=== PATIENT | female | born 1965 | race Caucasian/White ===

== ENCOUNTER 2019-12-25 00:31 | Day surgery (SDC) | payer OTHER, SELFPAY ==
[2019-12-20 10:35] VITALS: BMI 26.4
[2019-12-25 06:54] VITALS: BP 124/72; PULSE 76; RESP 20; TEMP 36.8; O2SAT 98
[2019-12-25] MEDS: LACTATED RINGERS 1,000 ML 150 ML IV CONT (07:01)
--- NOTE | 2019-12-25 07:06 | WPDANESEPPF ---
Anes - Initial Pre Proc Eval Procedure: Operation Date: 12/25/19 08:00 Proposed Procedures p Colonoscopy - Britton Aguilar MD Date/Time: 12/25/19 07:06 Surgeon: Britton Aguilar MD Pre Op Diagnosis: Rectal Bleeding Patient Data Age: 54 Gender: F Height: 5 ft 4 in Weight: 69.9 kg Last Vital Signs Temp 36.8 C 12/25/19 06:54 Pulse 76 12/25/19 06:54 Resp 20 12/25/19 06:54 BP 124/72 12/25/19 06:54 Pulse Ox 98 12/25/19 06:54 Allergies Allergy/AdvReac Type Severity Reaction Status Date / Time No Known Allergies Allergy Mild Verified 12/25/19 06:53 Home Medications Medication Instructions Recorded Confirmed Type ascorbic acid-collagen [Collagen 1 cap PO DAILY 12/20/19 12/20/19 History Plus Vitamin C] black cohosh 200 mg PO DAILY 12/20/19 12/20/19 History cyanocobalamin (vitamin B-12) 1,000 mcg PO DAILY 12/20/19 12/20/19 History [Vitamin B-12] salud sgku-hnzwexoi-aicrqy-cranb 1 cap PO DAILY 12/20/19 12/20/19 History [evening primrose oil-cranberry] lactobacillus combination no.8 3,000 mmu cells PO DAILY 12/20/19 12/20/19 History [Adult Probiotic] pfkbyatecuos-ecc-ryho-FA-vit K 1 tablet PO DAILY 12/20/19 12/20/19 History [Adults Multivitamin] psyllium seed (with dextrose) 3.4 g PO DAILY 12/20/19 12/20/19 History [fiber] vilazodone [Viibryd] 40 mg PO DAILY 12/20/19 12/20/19 History Patient hx anesthesia problems: none Family hx anesthesia problems: none PMFSH Past Medical History Medical History Depression Smoker Surgical History Surgical History (Updated 12/25/19 @ 07:07 by Pablo Urbano MD) H/O laparoscopy Family History Family History (Updated 06/28/14 @ 07:13 by DOCTOR UNKNOWN) Mother Hypertension Social History Social History Alcohol intake: current Anes - Eval Final PreProcedure Day of Procedure 12/25/19 07:06 Patient weight: overweight Heart: regular rate and rhythm Lungs: clear to auscultation Airway: Mallampati scale class II Neurological: alert and oriented Last oral intake: >/= 8 hours ASA classification: II Emergent: no Anesthetic plan: proceed Anesthesia type and monitoring: general GIVS and standard monitoring Informed Consent: The patient's anesthetic plan and its attendant risks and benefits were discussed with the patient/family/POA. Questions were solicited and answers provided to the satisfaction of the patient/family/POA.
--- NOTE | 2019-12-25 07:50 | P.CONGI_ITS ---
Assessment and Plan Additional Plan This is a 54-year-old white female patient seen in evaluation at the request of Dr. Cuauhtemoc Mcgowan. Patient complains of rectal bleeding for 6 months. She also notices mucus in her stools. Her bowel habits are regular. She has begun taking Pepto-Bismol which seems to help to some degree. She denies abdominal pain. Her last colonoscopy 2016 confirmed internal hemorrhoids. Patient's family history is noncontributory. She never previously had blood in her stools. Her weight has remained stable. Current medications include Viibryd, probiotics, vitamins and supplements. She has no known drug allergies. Physical exam reveals her to be alert. Oriented x3. Vital signs stable. HEENT exam unremarkable. Lungs are clear to auscultation and percussion. Heart is without murmur or extra sounds. Abdominal exam bowel sounds are present soft nontender with no organomegaly. Digital external rectal exam reveals a polypoid lesion on the right anal canal. Impression 1. Rectal bleeding. 2. Rectal lesion possible rectal polyp. Plan is for colonoscopy to evaluate more thoroughly. Fiber supplement such as FiberCon 2 tabs p.o. b.i.d. advised. Further recommendations will be given after endoscopy. GI Consult Note Consult date/time: 12/25/19 07:50 HPI: Beltran Turner is a 54 year old female [facility] Past Medical History Medical History Depression Smoker Surgical History Surgical History (Updated 12/25/19 @ 07:07 by Pablo Urbano MD) H/O laparoscopy Family History Family History (Updated 06/28/14 @ 07:13 by DOCTOR UNKNOWN) Mother Hypertension Social History Social History Alcohol intake: current Meds Home Medications and Allergies Home Medications Medication Instructions Recorded Confirmed Type ascorbic acid-collagen [Collagen 1 cap PO DAILY 12/20/19 12/20/19 History Plus Vitamin C] black cohosh 200 mg PO DAILY 12/20/19 12/20/19 History cyanocobalamin (vitamin B-12) 1,000 mcg PO DAILY 12/20/19 12/20/19 History [Vitamin B-12] salud ytww-qsxddhzk-sheeqe-cranb 1 cap PO DAILY 12/20/19 12/20/19 History [evening primrose oil-cranberry] lactobacillus combination no.8 3,000 mmu cells PO DAILY 12/20/19 12/20/19 History [Adult Probiotic] mapdjbemkdbf-syc-ejda-FA-vit K 1 tablet PO DAILY 12/20/19 12/20/19 History [Adults Multivitamin] psyllium seed (with dextrose) 3.4 g PO DAILY 12/20/19 12/20/19 History [fiber] vilazodone [Viibryd] 40 mg PO DAILY 12/20/19 12/20/19 History Allergies Allergy/AdvReac Type Severity Reaction Status Date / Time No Known Allergies Allergy Mild Verified 12/25/19 06:53 Vital Signs Vital Signs - 24 hr 12/25/19 06:54 Temperature 36.8 C Pulse Rate 76 Respiratory Rate 20 Blood Pressure 124/72 Pulse Oximetry 98
[2019-12-25 08:15] VITALS: BP 94/61; PULSE 63; RESP 26; O2SAT 100
[2019-12-25 08:25] VITALS: BP 111/73; PULSE 67; RESP 16; O2SAT 98
[2019-12-25 08:35] VITALS: BP 112/77; PULSE 61; RESP 19; O2SAT 100
== END 2019-12-25 08:46 | disposition home or self-care (01) ==
PROVIDERS: PCP Family Medicine Adolescent Medicine; Visit Provider Internal Medicine Gastroenterology
PROC: 0DJD8ZZ Inspection of Lower Intestinal Tract, Via Natural or Artificial Opening Endoscopic (ICD-10-PCS; CPT 45378; principal; 2019-12-25 08:00)
DX: Z12.11 Encounter for screening for malignant neoplasm of colon (principal); K63.5 Polyp of colon; K64.8 Other hemorrhoids; K62.5 Hemorrhage of anus and rectum; F32.9 Major depressive disorder, single episode, unspecified
CPT/HCPCS: 45385; 88305; J2704; J7120

== ENCOUNTER 2021-01-17 10:53 | Outpatient (CLI) | payer OTHER, SELFPAY ==
[2021-01-17 11:41] LABS: Hematocrit 38.5 % (37.0-47.0); Hemoglobin 13.1 g/dL (12.0-15.0); Mean Corpuscular Hemoglobin 32.3 pg (26-34); Mean Corpuscular Volume 95.1 fl (80-100); Mean Platelet Volume 9.3 fl (7.4-10.4); Platelet Count Result 306 k/mm3 (150-375); Red Blood Count 4.05 M/mm3 (4.2-5.4); Red Cell Distribution Width 12.5 % (11.5-14.5); White Blood Count 9.1 K/mm3 (4.5-10.0)
== END 2021-01-17 10:54 | disposition home or self-care (01) ==
PROVIDERS: PCP Family Medicine Adolescent Medicine; Visit Provider Nurse Practitioner Family
DX: R19.7 Diarrhea, unspecified (principal)
CPT/HCPCS: 36415; 85027

== ENCOUNTER 2021-01-18 10:58 | Outpatient (CLI) | payer OTHER, SELFPAY | END 2021-01-18 10:59 | disposition home or self-care (01) | LOC: ANHLAB 11:02 | PROVIDERS: PCP Family Medicine Adolescent Medicine; Visit Provider Nurse Practitioner Family | DX: R19.7 Diarrhea, unspecified (principal) | CPT/HCPCS: 87045; 87046; 87427 ==

== ENCOUNTER → 2022-09-21 14:51 | Outpatient (CLI) | payer OTHER, SELFPAY ==
--- NOTE | ~2022-09-21 | MM_ITS ---
EXAMINATION: MM scrn harjinder implant BI w angelic HISTORY: Screening mammogram TECHNIQUE: Craniocaudal and mediolateral oblique 3-D tomosynthesis images with implant displacement a nd synthetic 2-D images were generated. Craniocaudal and mediolateral oblique views of the breasts wi thout implant displacement were obtained using full field digital mammography. CAD analysis was submi tted and interpreted. COMPARISON: 04/20/2013, 09/11/2010 bilateral implant screening mammogram examinations BREAST PARENCHYMAL COMPOSITION: The breasts are heterogeneously dense, which may obscure small masses . FINDINGS: Status post bilateral augmentation mammoplasty. Right breast: There is no evidence of suspicious mass, calcification, or architectural distortion to suggest malignancy in either breast. There has been no suspicious interval change. Left breast: There is asymmetric density in the posterior central left breast. Diagnostic left mammog roxanna and left breast ultrasound examination are recommended. IMPRESSION: 1. Left mammographic asymmetry 2. Diagnostic left mammogram and left breast ultrasound examination are recommended BI-RADS Category 0: Incomplete: Needs additional imaging evaluation. Reviewed, dictated and finalized at location A. LE MOLDER IMPRESSION: 1. Left mammographic asymmetry 2. Diagnostic left mammogram and left breast ultrasound examination are recomme nded BI-RADS Category 0: Incomplete: Needs additional imaging evaluation.
== END ==
PROVIDERS: PCP Obstetrics & Gynecology; Visit Provider Obstetrics & Gynecology
DX: Z12.31 Encounter for screening mammogram for malignant neoplasm of breast (principal); R92.8 Other abnormal and inconclusive findings on diagnostic imaging of breast
CPT/HCPCS: 77063; 77067

== ENCOUNTER → 2022-10-13 08:27 | Outpatient (CLI) | payer OTHER, SELFPAY ==
--- NOTE | ~2022-10-13 | MMUS_ITS ---
EXAMINATION: MM diag harjinder implant LT w angelic, US breast LT complete HISTORY: Follow-up left breast asymmetries TECHNIQUE: Additional 3-D tomosynthesis images of the left breast were performed and synthetic 2-D im ages were generated. CAD analysis was submitted and interpreted. High resolution complete left breast ultrasound was performed. COMPARISON: Comparison to multiple prior studies sequentially, with oldest reviewed study dated 09/0111/02/1912/21/2009. BREAST PARENCHYMAL COMPOSITION: Breast composed of scattered areas of fibroglandular density. FINDINGS: MAMMOGRAPHIC FINDINGS: There are nodular asymmetries in the lower central aspect of the left breast adjacent to the left beck ast silicone implant. There were previously nodular densities adjacent to the implant on the 3 examination, although there is a different morphology. ULTRASOUND: Complete bilateral US of all 4 quadrants of the left breast and retroareolar region was reviewed. The re are areas of silicone shadowing adjacent to the implant at 3-4:00, 4-5:00, 7:00, likely correspond ing to the findings on mammography. No other discrete solid or cystic mass is identified. IMPRESSION: 1. 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 2. Recommend correlation with MRI of the breasts without and with contrast for further assessment of these masses. BI-RADS Category 0: Incomplete: Needs additional imaging evaluation. Reviewed, dictated and finalized at location B. ERCIAL LOAN ASSISTANT IMPRESSION: 1. 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 2. Recommend correlation with MRI of the breasts without and with contrast for further assessment of these masses. BI-RADS Category 0: Incomplete: Needs additional imaging evaluation.
== END ==
PROVIDERS: PCP Family Medicine Adolescent Medicine; Visit Provider Obstetrics & Gynecology
DX: R92.8 Other abnormal and inconclusive findings on diagnostic imaging of breast (principal); N63.25 Unspecified lump in the left breast, overlapping quadrants
CPT/HCPCS: 76641; 77061; 77065; G0279

== ENCOUNTER 2022-11-06 07:58 | Outpatient (CLI) | payer OTHER, SELFPAY ==
--- NOTE | ~2022-11-06 | MR_ITS ---
EXAMINATION: MR breast BI wo/w con INDICATION: Indeterminate left breast masses TECHNIQUE: Axial VIBRANT pre and dynamic post contrast, Sagittal VIBRANT post contrast, Axial T2 STIR ASSET, Axial T2 FSE ASSET, axial VIBRANT, Sagittal T2 FSE, Sagittal T2 STIR silicone SAT, Sagittal T 2 STIR silicone bright COMPARISON: Prior mammograms and ultrasounds dated 10/13/2022, 09/21/2022, 03/24/2013, 09/11/2010 CONTRAST: Multihance, 15 cc BREAST COMPOSITION: Scattered fibroglandular tissue FINDINGS: RIGHT BREAST: There is mild background parenchymal enhancement. Motion artifact renders post contrast sequences essentially uninterpretable. No abnormal enhancement is present after contrast administrat ion. No pathologically enlarged axillary or internal mammary lymph nodes are identified. LEFT BREAST: There is mild background parenchymal enhancement. There is residual silicone in the [place] st from prior breast implant rupture accounting for the mammographic finding in question. Motion halima fact renders post contrast sequences essentially uninterpretable. No abnormal enhancement is present after contrast administration. No pathologically enlarged axillary or internal mammary lymph nodes ar e identified. IMPRESSION: 1. Residual silicone in the left breast from prior implant rupture corresponding to the mammographic finding in question. Motion artifact precludes evaluation for breast cancer however no additional renan picious finding is identified on mammogram or ultrasound. Routine annual screening mammography is rec ommended. BI-RADS Category 2: Benign finding(s). Reviewed, dictated and finalized at location A. DIRECTOR IMPRESSION: 1. Residual silicone in the left breast from prior implant rupture correspondin g to the mammographic finding in question. Motion artifact precludes evaluation for breast cancer however no additional suspicious finding is identified on ma mmogram or ultrasound. Routine annual screening mammography is recommended. BI-RADS Category 2: Benign finding(s).
== END 2022-11-06 07:59 | disposition home or self-care (01) ==
PROVIDERS: PCP Family Medicine Adolescent Medicine; Visit Provider Obstetrics & Gynecology
DX: N63.25 Unspecified lump in the left breast, overlapping quadrants (principal)
CPT/HCPCS: 77049; A9577; C8908

== ENCOUNTER 2024-01-31 07:27 | Emergency (ER) | payer OTHER, SELFPAY ==
--- NOTE | ~2024-01-31 | XR_ITS ---
EXAMINATION: XR lumbar spine min 4V DATE: 01/31/2024 10:26 INDICATION: Low back pain. TECHNIQUE: 5 views of lumbar spine were obtained. COMPARISON: None. FINDINGS: There is 4 degrees dextrocurvature of lumbar spine. There is 3 mm anterolisthesis of L5 on S1. There are chronic bilateral L5 pars defects. There is mild chronic anterior wedging of T11 and T1 2 vertebral bodies. There is mild chronic height loss of L5 vertebral body posteriorly. There is mild ly decreased disc height at L2-L3 and severely decreased disc height at L3-L4 and L5-S1. There is mul tilevel mild facet joint osteoarthritis. IMPRESSION: 1. Chronic bilateral L5 pars defects with grade 1 anterolisthesis of L5 on S1. 2. Severe lumbar spondylosis. Reviewed, dictated and finalized at location A.
[2024-01-31 07:31] VITALS: BP 137/78; PULSE 98; RESP 17; TEMP 36.4; O2SAT 98
[2024-01-31] MEDS: methylPREDNISolone SOD SUCC 125 MG VIAL IM (09:35)
[2024-01-31] MEDS: ACETAMINOPHEN 500 MG TABLET 1000 MG PO (09:35)
[2024-01-31] MEDS: methocarbamoL 500 MG TABLET 1000 MG PO (09:35)
[2024-01-31] MEDS: KETOROLAC (*BKC) 60 MG/2 ML VIAL IM (09:36)
--- NOTE | 2024-01-31 09:39 | ED.BACK ---
HPI - Back Pain/Injury General Chief Complaint: Back Pain/Injury Stated Complaint: back pain Time Seen by Provider: 01/31/24 09:00 Source: patient Mode of arrival: ambulatory Limitations: no limitations History of Present Illness HPI Narrative: Patient is a 58-year-old female who presents ED with report of low back pain. Patient reports she went to bed fine on night, but woke up Wednesday morning with pain throughout her lower back. Pain worse with movement, twisting, sitting upright. She has been taking Aleve in using icy hot patches with minimal relief. Began feeling slightly better yesterday, but had worsening pain today. Has not taking anything for pain today. Pain does slightly radiate into legs. No significant abdominal pain. Denies saddle anesthesia, bowel or bladder incontinence, numbness, weakness, fevers, dysuria, hematuria, known injury. Related Data Home Medications Medication Instructions Recorded Confirmed ascorbic acid 125 mg-collagen, 1 cap PO DAILY 12/20/19 01/10/24 hydrolyzed 740 mg capsule (Collagen Plus Vitamin C) cyanocobalamin (vitamin B-12) 1,000 mcg PO DAILY 12/20/19 01/10/24 1,000 mcg tablet (Vitamin B-12) evening 1 cap PO DAILY 12/20/19 01/10/24 gupyflbp-nrtkwtkk-cjotmvw-cran 500 mg-365 mg-45 mg-200 mg cap (evening primrose oil with cranberry) lactobacillus combination no.8 3 3,000 mmu cells PO DAILY 12/20/19 01/10/24 billion cell capsule (Adult Probiotic) multivit with minerals-iron 18 1 tablet PO DAILY 12/20/19 01/10/24 mg-folic ac 400 mcg-vit K 25 mcg tablet (Adults Multivitamin) Allergies Allergy/AdvReac Type Severity Reaction Status Date / Time No Known Allergies Allergy Mild Verified 01/31/24 07:28 Review of Systems Review of Systems: CONSTITUTIONAL: Denies fever, chills, or sweats. GASTROINTESTINAL: Denies incontinence, abdominal pain, nausea, vomiting, or diarrhea. GENITOURINARY: Denies incontinence, dysuria or hematuria. MUSCULOSKELETAL: See HPI. NEUROLOGIC: Denies headache, dizziness, numbness, or weakness. All systems reviewed & are unremarkable except as noted in HPI and below PMFSH Past Medical History Medical History Depression Diarrhea Smoker Surgical History Surgical History H/O laparoscopy Family History Family History Mother Hypertension Social History Social History Smoking status: Former smoker Alcohol intake: current Do You Feel Safe in your Home?: Yes Lack of Transportation: No Lack of Food: Never True Current Housing: I Have Housing Concerned About Future Housing: No Difficulty Paying Gas/Electric Bills: No Difficulty Paying for Meds: No Currently Unemployed: No Education: Bachelor's Degree Difficulty w/ Childcare or Family Care: No Exam Narrative: GENERAL: Mildly uncomfortable appearing, well-nourished, non-toxic, in no acute distress. HEAD: Normocephalic, atraumatic. RESPIRATORY: Airway patent, respirations nonlabored. Clear to auscultation bilaterally, no rales, rhonchi, wheezing. CARDIOVASCULAR: Regular rate and rhythm ABDOMINAL: Soft, no tenderness throughout abdomen, nondistended. Normoactive BS. MUSCULOSKELETAL: Moves all extremities. No gross deformities. Discomfort reported with any movement on ED stretcher, patient appears to have intermittent spasms. Diffuse tenderness over lumbosacral region. No significant midline spinal tenderness, no palpable bony deformities. Sensation is intact. SKIN: Warm, dry, normal color. NEURO: A&O X3. Speech clear. PSYCHIATRIC: Appropriate mood and affect. Normal interaction. Course Vital Signs Vital signs: Vital Signs Temperature 97.5 F L 01/31/24 07:31 Pulse Rate 98 01/31/24 07:31 Respiratory Rate 17 01/31/24 07:31 Blood Pres
== END 2024-01-31 11:28 | disposition home or self-care (01) ==
PROVIDERS: Emergency Provider Physician Assistant; PCP Family Medicine Adolescent Medicine
DX: M47.816 Spondylosis without myelopathy or radiculopathy, lumbar region (principal); Z87.891 Personal history of nicotine dependence; S39.012A Strain of muscle, fascia and tendon of lower back, initial encounter; X58.XXXA Exposure to other specified factors, initial encounter
CPT/HCPCS: 72110; 96372; 99284; A9270; J1885; J2919

== ENCOUNTER 2025-03-16 15:19 | Outpatient (CLI) | payer OTHER, SELFPAY ==
--- OUTSIDE RECORDS SUMMARY | 2025-03-16 15:23 | XMS_ITS | Clinical Summary ---
Author Organization [facility] [employer] Address [address] [place] [address] Care Team Providers Care Environmental Specialist Name Role Phone Unavailable Primary Care Provider Unavailabl e Source Comments [facility] [employer],non-owned Affiliates and Associated Physician Practices is amultiple site organization consisting of ambulatory clinics and hospital sitesin [place], [place], [place] and [place]. This disclosure is being madepursuant to the Care Everywhere program and may not contain all information available regarding this patient. Last updated 18.[facility] [employer] Allergies No known active allergies Medications * Be aware that medications may not be up to date on this document. Alwaysverify current medications with the patient. 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 Gender Identity Not on file Sexual Orientation Not on file Last Filed Vital Signs Vital Sign Reading Time Taken Comments Blood Pressure 118/72 12/22/2019 11:00 AM COUPLING MACHINE OPERATOR Pulse 86 12/22/2019 11:00 AM COUPLING MACHINE OPERATOR Temperature 37.7 C (99.8 F) 12/22/2019 11:00 AM COUPLING MACHINE OPERATOR Respiratory Rate 16 12/22/2019 11:00 AM COUPLING MACHINE OPERATOR Oxygen Saturation 98% 12/22/2019 11:00 AM COUPLING MACHINE OPERATOR Inhaled Oxygen Concentration - - Weight 69.9 kg (154 lb) 12/22/2019 11:00 AM COUPLING MACHINE OPERATOR Height 162.6 cm (5' 4 ) 12/22/2019 11:00 AM COUPLING MACHINE OPERATOR Body Mass Index 26.43 12/22/2019 11:00 AM COUPLING MACHINE OPERATOR Plan of Treatment Health Maintenance Due Date Last Done Comments COLOGUARD (AGES 45-75) - COL ON CA SCREENING 1965 COLON MONITORING 1965 COLONOSCOPY - COLON CA SCREENING 1965 CT COLONOGRAPHY - COLON CA SCREENING 1965 Colorectal Cancer Screening 1965 FIT - COLON CA SCREENING 1965 FLEX SIG - COLON CA SCREENING 1965 LIPID TESTING 1965 MAMMOGRAM 1965 HIV SCREENING 1980 HEPATITIS C SCREENING 06/19/1983 DTAP/TDAP/TD VACCINES (1 - Tdap) 1984 HEPATITIS B VACCINE (1 of 3 - 19+ 3-dose series) 1984 PNEUMOCOCCAL VACCINE 50+ (1 of 1 - PCV) 2015 ZOSTER VACCINE (1 of 2) 2015 SCREENING FOR DIABETES 12/22/2019 COVID-19 VACCINE (1 - 2023-2 5 season) 2024 DEPRESSION SCREENING 11/01/2024 INFLUENZA VACCINE (Season Ended) 2025 HIB VACCINE Aged Out No longer eligi ble based on patient's age to complete this topic HPV VACCINE Aged Out No longer eligi ble based on patient's age to complete this topic MENINGOCOCCAL (Group B) VACC INE SHARED DECISION-MAKING Aged Out No longer eligibl e based on patient's age to complete this topic MENINGOCOCCAL GROUPS A/C/Y/W VACCINE Aged Out No longer eligible b ased on patient's age to complete this topic Insurance [facility]
[2025-03-16 15:44] LABS: Basophils Absolute Auto 0.1 K/mm3 (0.0-0.1); Basophils Percent Auto 0.9 % (0.2-1.2); Eosinophils Absolute Auto 0.4 K/mm3 (0-0.3); Eosinophils Percent Auto 4.6 % (0-4.4); Hematocrit 40.8 % (37.0-47.0); Immature Granulocyte Absolute 0.03 K/mm3 (0.00-0.031); Immature Granulocyte Percent A 0.3 % (0-0.5); Lymphocytes Absolute Auto 3.15 K/mm3 (0.9-3.2); Lymphocytes Percent Auto 34.2 % (18.3-44.2); Mean Corpuscular HGB Conc 31.9 g/dl (32-36); Mean Corpuscular Hemoglobin 31.5 pg (26-34); Mean Corpuscular Volume 98.8 fl (80-100); Mean Platelet Volume 9.2 fl (7.4-10.4); Monocytes Absolute Auto 0.7 K/mm3 (0.1-0.6); Monocytes Percent Auto 7.9 % (2.6-8.5); Neutrophils Absolute Auto 4.8 K/mm3 (1.3-6.7); Neutrophils Percent Auto 52.1 % (45.5-73.1); Platelet Count Result 325 k/mm3 (150-375); Red Blood Count 4.13 M/mm3 (4.2-5.4); Red Cell Distribution Width 14.2 % (11.5-14.5); White Blood Count 9.2 K/mm3 (4.5-10.0)
[2025-03-16 15:59] LABS: Alanine Aminotransferase 22 U/L (6-35); Albumin Level 4.5 g/dL (3.5-5.1); Alkaline Phosphatase 74 U/L (38-126); Anion Gap 8 mmol/L (4-12); Aspartate Amino Transferase 42 U/L (14-36); Bilirubin,Total 0.3 mg/dL (0.2-1.3); Blood Urea Nitrogen 17 mg/dL (7-17); Calcium 9.5 mg/dL (8.4-10.2); Carbon Dioxide 26 mmol/L (22-30); Chloride 104 mmol/L (98-107); Estimated Glomerular Filt Rate > 60; Glucose 78 mg/dL (65-110); Potassium 4.1 mmol/L (3.4-5.0); Sodium 138 mmol/L (137-145)
[2025-03-16 16:07] LABS: Iron 56 ug/dL (37-170)
[2025-03-16 16:16] LABS: Percent Iron Saturation 15 % (20-50)
== END 2025-03-16 15:20 | disposition home or self-care (01) ==
LOC: ANHLAB 15:20
PROVIDERS: PCP Family Medicine Adolescent Medicine; Visit Provider Nurse Practitioner Family
DX: R19.7 Diarrhea, unspecified (principal); K92.1 Melena; R53.83 Other fatigue
CPT/HCPCS: 36415; 80048; 80076; 82728; 83540; 83550; 85025

== ENCOUNTER 2025-03-17 08:58 | Outpatient (CLI) | payer OTHER, SELFPAY ==
--- OUTSIDE RECORDS SUMMARY | 2025-03-17 09:00 | XMS_ITS | Clinical Summary ---
Author Organization [facility] Address [address] [place] [address] Care Team Providers Care [place] Cleaner Name Role Phone Unavailable Primary Care Provider Unavailabl e Source Comments [facility],non-owned Affiliates and Associated Physician Practices is amultiple site organization consisting of ambulatory clinics and hospital sitesin [place], [place], [place] and [place]. This disclosure is being madepursuant to the Care Everywhere program and may not contain all information available regarding this patient. Last updated 18.[facility] Allergies No known active allergies Medications * [...] on file Legal Sex Female 6:49 AM GRANULATOR Gender Identity Not on file Sexual Orientation Not on file Last Filed Vital Signs Vital Sign Reading Time Taken Comments Blood Pressure 118/72 12/22/2019 11:00 AM GRANULATOR Pulse 86 12/22/2019 11:00 AM GRANULATOR Temperature 37.7 C (99.8 F) 12/22/2019 11:00 AM GRANULATOR Respiratory Rate 16 12/22/2019 11:00 AM GRANULATOR Oxygen Saturation 98% 12/22/2019 11:00 AM GRANULATOR Inhaled Oxygen Concentration - - Weight 69.9 kg (154 lb) 12/22/2019 11:00 AM GRANULATOR Height 162.6 cm (5' 4 ) 12/22/2019 11:00 AM GRANULATOR Body Mass Index 26.43 12/22/2019 11:00 AM GRANULATOR Plan of Treatment Health Maintenance Due Date [...] patient's age to complete this topic Insurance [facility] [place] Address: [facility] [id number] [place] [address]
[2025-03-17 10:58] LABS: Toxigenic C. Diff NEGATIVE (NEGATIVE)
[2025-03-22 15:12] LABS: Calprotectin, Stool 957 mcg/g
[2025-03-23 03:23] LABS: Pancreatic Elastase, Stool 174 mcg/g (>200)
== END 2025-03-17 08:59 | disposition home or self-care (01) ==
LOC: ANHLAB 08:59
PROVIDERS: PCP Family Medicine Adolescent Medicine; Visit Provider Nurse Practitioner Family
DX: R19.7 Diarrhea, unspecified (principal); K92.1 Melena; R53.83 Other fatigue
CPT/HCPCS: 82653; 83993; 87045; 87427; 87449; 87493

== ENCOUNTER 2025-03-23 00:58 | Day surgery (SDC) | payer OTHER, SELFPAY ==
[2025-03-22 12:01] VITALS: BMI 27.1
--- OUTSIDE RECORDS SUMMARY | 2025-03-23 01:02 | XMS_ITS | Clinical Summary ---
Author Organization [facility] Address [address] [place] [address] Care Team Providers Care Operator Prefinish Name Role Phone Unavailable Primary Care Provider Unavailabl e Source Comments [facility],non-owned Affiliates and Associated Physician Practices is amultiple site organization consisting of ambulatory clinics and hospital sitesin [place], [place], [place] and [place]. This disclosure is being madepursuant to the Care Everywhere program and may not contain all information available regarding this patient. 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 APPLICATION ENGINEER Gender Identity Not on file Sexual Orientation Not on file Last Filed Vital Signs Vital Sign Reading Time Taken Comments Blood Pressure 118/72 12/22/2019 11:00 AM APPLICATION ENGINEER Pulse 86 12/22/2019 11:00 AM APPLICATION ENGINEER Temperature 37.7 C (99.8 F) 12/22/2019 11:00 AM APPLICATION ENGINEER Respiratory Rate 16 12/22/2019 11:00 AM APPLICATION ENGINEER Oxygen Saturation 98% 12/22/2019 11:00 AM APPLICATION ENGINEER Inhaled Oxygen Concentration - - Weight 69.9 kg (154 lb) 12/22/2019 11:00 AM APPLICATION ENGINEER Height 162.6 cm (5' 4 ) 12/22/2019 11:00 AM APPLICATION ENGINEER Body Mass Index 26.43 12/22/2019 11:00 AM APPLICATION ENGINEER Plan of Treatment Health Maintenance Due Date [...] patient's age to complete this topic Insurance [facility]
[2025-03-23 09:43] VITALS: BP 120/70; PULSE 80; RESP 16; TEMP 36.8; O2SAT 100
[2025-03-23] MEDS: LACTATED RINGERS 1,000 ML 150 ML IV CONT (09:53)
--- NOTE | 2025-03-23 09:55 | P.PNAN_ITS ---
Anes - Initial Pre Proc Eval Procedure: Operation Date: 03/23/25 11:00 Proposed Procedures p Esophagogastroduodenoscopy & Colonoscopy - Isra Domingo MD Date/Time: 03/23/25 09:55 Surgeon: Isra Domingo MD Pre Op Diagnosis: Nausea with vomiting, unspecified, Dysphagia, unsp Patient Data Age: 59 Gender: F Height: 1.63 m Weight: 69.8 kg Last Vital Signs Temp 36.8 C 03/23/25 09:43 Pulse 80 03/23/25 09:43 Resp 16 03/23/25 09:43 BP 120/70 03/23/25 09:43 Pulse Ox 100 03/23/25 09:43 O2 Del Method Room Air 03/23/25 09:43 Allergies Allergy/AdvReac Type Severity Reaction Status Date / Time No Known Allergies Allergy Mild Verified 03/23/25 09:41 Home Medications ?Medication ?Instructions ?Recorded ?Confirmed ?Type ascorbic acid 125 mg-collagen, 1 cap PO DAILY 12/20/19 03/23/25 History hydrolyzed 740 mg capsule (Collagen Plus Vitamin C) cyanocobalamin (vitamin B-12) 1,000 mcg PO DAILY 12/20/19 03/23/25 History 1,000 mcg tablet (Vitamin B-12) lactobacillus combination no.8 3 3,000 mmu cells PO DAILY 12/20/19 03/23/25 History billion cell capsule (Adult Probiotic) multivit with minerals-iron 18 1 tablet PO DAILY 12/20/19 03/23/25 History mg-folic ac 400 mcg-vit K 25 mcg tablet (Adults Multivitamin) omeprazole 40 mg capsule,delayed 40 mg PO DAILY #30 caps 03/16/25 03/23/25 Rx release ondansetron 4 mg disintegrating 4 mg PO Q8H PRN nausea and 03/16/25 03/22/25 Rx tablet vomiting #30 tabs vilazodone 40 mg tablet 40 mg PO DAILY 03/22/25 03/23/25 History Patient hx anesthesia problems: none Family hx anesthesia problems: none Results Review: All pre-operative results and documents have been reviewed as part of the pre- operative evaluation. PMFSH Past Medical History Medical History Diarrhea Depression Smoker Surgical History Surgical History H/O laparoscopy Family History Family History Mother Hypertension Social History Social History Smoking packs per day: 1 Smoking cigarettes per day: 20.0 Years smoked: 37 Smoking pack-years: 37.00 Smoking status: Current every day smoker Tobacco type: cigarettes and e-cigarettes/vaping Additional smoking assessment comments: CURRENTLY VAPES- SINCE 2018 Alcohol intake: current Drinks per week: 6 Alcohol use details: BEER/VODKA Substance use: never Substance use type: does not use Do You Feel Safe in your Home?: Yes Lack of Transportation: No Lack of Food: Never True Current Housing: I Have Housing Concerned About Future Housing: No Difficulty Paying Gas/Electric Bills: No Difficulty Paying for Meds: No Currently Unemployed: No Education: Bachelor's Degree Difficulty w/ Childcare or Family Care: No Living arrangements: with family Spiritual care concerns: No Anes - Eval Final PreProcedure Day of Procedure 03/23/25 09:55 Patient weight: normal Heart: regular rate and rhythm Lungs: decreased breath sounds Airway: Mallampati scale class II Neurological: alert and oriented Last oral intake: >/= 8 hours ASA classification: III Emergent: no Anesthetic plan: proceed Anesthesia type and monitoring: general GIVS and standard monitoring Results Review: All pre-operative results and documents have been reviewed as part of the pre- operative evaluation. Informed Consent: The patient's anesthetic plan and its attendant risks and benefits were discussed with the patient/family/POA. Questions were solicited and answers provided to the satisfaction of the patient/family/POA.
--- NOTE | 2025-03-23 10:06 | WPDHPUPDATE1 ---
History and Physical Update Update Date/Time: 03/23/25 10:06 History and Physical has been reviewed, including an updated exam of the patient. There are NO changes in the patient's condition. Risks, benefits, and alternatives have been discussed and questions answered. Patient agrees to proceed with procedure.
--- NOTE | 2025-03-23 10:20 | SUR.OPER ---
EGD end 101, colonoscopy start 102
[2025-03-23 10:31] VITALS: BP 104/69; PULSE 77; RESP 20; O2SAT 100
[2025-03-23 10:41] VITALS: BP 117/68; PULSE 68; RESP 18; O2SAT 100
[2025-03-23 10:51] VITALS: BP 118/74; PULSE 66; RESP 18; O2SAT 100
== END 2025-03-23 11:01 | disposition home or self-care (01) ==
PROVIDERS: PCP Family Medicine Adolescent Medicine; Visit Provider Internal Medicine Gastroenterology
PROC: 0DJ08ZZ Inspection of Upper Intestinal Tract, Via Natural or Artificial Opening Endoscopic (ICD-10-PCS; CPT 45378; principal; 2025-03-23 11:00)
DX: K51.30 Ulcerative (chronic) rectosigmoiditis without complications (principal); F32.A Depression, unspecified; R53.83 Other fatigue; F17.290 Nicotine dependence, other tobacco product, uncomplicated; Z80.0 Family history of malignant neoplasm of digestive organs
CPT/HCPCS: 43239; 45380; 88305; J2704; J7120

== ENCOUNTER 2025-03-23 12:48 | Outpatient (CLI) | payer OTHER, SELFPAY ==
--- NOTE | ~2025-03-23 | CT_ITS ---
CT of the Abdomen and Pelvis: Indication: Diarrhea Technique: 2.5 mm axial scans were obtained through the abdomen and pelvis following intravenous adm inistration of 100 cc of Omnipaque 350. Dose reduction technique was used on this scan by utilizing a utomated exposure control and iterative reconstruction technique. The dose-length product (DLP) was 5 11.88 mGy-cm. Findings: Scans through the lung bases are unremarkable. The liver, spleen, pancreas, gallbladder, adrenals and kidneys are within normal limits. There are at herosclerotic calcifications of the aorta. No lymphadenopathy. There is extensive wall thickening of the distal sigmoid colon and rectum, with mild adjacent strandi ng. There are enlarged perirectal lymph nodes (for example left side on image 89, right side image 93 , 94). No bowel obstruction evident. No abscess or free air evident. Images through the pelvis were performed. Urinary bladder unremarkable. No pelvic mass seen. No ascit es. Bilateral L5 pars interarticularis defects are present, with 5 mm anterolisthesis of L5 over S1. Impression: Extensive wall thickening of the distal sigmoid colon and rectum with mild adjacent stranding/infiltr ative change and enlarged perirectal lymph nodes. Diagnostic considerations include rectal adenocarci noma with local early taylor metastasis versus infectious/inflammatory colitis with reactive lymph nod es. Clinical correlation required. Bilateral L5 pars interarticularis defects. Reviewed, dictated and finalized at [facility]. Impression: Extensive wall thickening of the distal sigmoid colon and rectum with mild evette cent stranding/infiltrative change and enlarged perirectal lymph nodes. Diagnos tic considerations include rectal adenocarcinoma with local early taylor metasta sis versus infectious/inflammatory colitis with reactive lymph nodes. Clinical correlation required. Bilateral L5 pars interarticularis defects.
== END 2025-03-23 12:49 | disposition home or self-care (01) ==
LOC: MICIMG 12:49
PROVIDERS: PCP Family Medicine Adolescent Medicine; Visit Provider Nurse Practitioner Family
DX: R19.7 Diarrhea, unspecified (principal); K92.1 Melena; R11.2 Nausea with vomiting, unspecified; R53.83 Other fatigue
CPT/HCPCS: 74177; Q9967

== ENCOUNTER 2025-03-27 11:41 | Outpatient (CLI) | payer OTHER, SELFPAY ==
--- OUTSIDE RECORDS SUMMARY | 2025-03-27 11:46 | XMS_ITS | Clinical Summary ---
Author Organization [facility] Address [address] [address] Care Team Providers Care Landscape Nurseryman Name Role Phone Unavailable Primary Care Provider Unavailabl e Source Comments [facility],non-owned Affiliates and Associated Physician Practices is amultiple site organization consisting of ambulatory clinics and hospital sitesin [place], [place], [place] and [place]. This disclosure is being madepursuant to the Care Everywhere program and may not contain all information available regarding this patient. 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 Gender Identity Not on file Sexual Orientation Not on file Last Filed Vital Signs Vital Sign Reading Time Taken Comments Blood Pressure 118/72 12/22/2019 11:00 AM OPERATOR TECHNICIAN Pulse 86 12/22/2019 11:00 AM OPERATOR TECHNICIAN Temperature 37.7 C (99.8 F) 12/22/2019 11:00 AM OPERATOR TECHNICIAN Respiratory Rate 16 12/22/2019 11:00 AM OPERATOR TECHNICIAN Oxygen Saturation 98% 12/22/2019 11:00 AM OPERATOR TECHNICIAN Inhaled Oxygen Concentration - - Weight 69.9 kg (154 lb) 12/22/2019 11:00 AM OPERATOR TECHNICIAN Height 162.6 cm (5' 4) 12/22/2019 11:00 AM OPERATOR TECHNICIAN Body Mass Index 26.43 12/22/2019 11:00 AM OPERATOR TECHNICIAN Plan of Treatment Health Maintenance Due Date [...] patient's age to complete this topic [facility]
[2025-03-27 12:18] LABS: CRP < 0.5 mg/dL (<1.0)
[2025-03-27 12:37] LABS: Erythrocyte Sedimentation Rate 15 mm/hr (0-20)
[2025-03-27 13:20] LABS: Hepatitis B Surface Antigen Negative (Negative)
[2025-03-27 13:38] LABS: Hepatitis B Surface Anti Res Negative
[2025-03-28 17:08] LABS: Hepatitis B Core Ab Total NON-REACTIVE (NON-REACTIVE)
[2025-03-30 13:32] LABS: NIL 0.01 IU/mL; Quantiferon TB Plus, 1T NEGATIVE (NEGATIVE); TB1-NIL 0.01 IU/mL; TB2-NIL 0.03 IU/mL
== END 2025-03-27 11:42 | disposition home or self-care (01) ==
LOC: ANHLAB 11:44
PROVIDERS: PCP Family Medicine Adolescent Medicine; Visit Provider Internal Medicine Gastroenterology
DX: K51.30 Ulcerative (chronic) rectosigmoiditis without complications (principal); R19.7 Diarrhea, unspecified; R19.5 Other fecal abnormalities
CPT/HCPCS: 36415; 85652; 86140; 86480; 86704; 86706; 87340